=== PATIENT | male | born 1960 | race Caucasian/White ===

== ENCOUNTER 2024-04-01 09:55 | Inpatient (IN) | payer OTHER ==
[2024-04-01 10:33] VITALS: BMI 26.6
[2024-04-01] MEDS ORDERED: POLYETHYLENE GLYCOL (HEALTHYLAX) 3350 17 GM PACKET PO PRN (10:45)
[2024-04-01] MEDS ORDERED: MAG HYDROX/AL HYDROX/SIMETH 30 ML UNIT-DOSE CUP PO PRN (10:45)
[2024-04-01] MEDS ORDERED: IBUPROFEN 600 MG TABLET (FP) PO PRN (10:45)
[2024-04-01] MEDS ORDERED: MAGNESIUM HYDROX 2400MG/30ML ORAL SUSPENSION 30 ML CUP PO PRN (10:45)
[2024-04-01] MEDS ORDERED: BENZOCAINE/MENTHOL (CHLORASEPTIC ) LOZENGE MM PRN (10:45)
[2024-04-01] MEDS ORDERED: ACETAMINOPHEN 325 MG TABLET (FP) PO PRN (10:45)
[2024-04-01] MEDS ORDERED: NICOTINE POLACRILEX 2 MG GUM BUC PRN (10:45)
[2024-04-01] MEDS ORDERED: BISMUTH SUBSALICYLATE 524 MG/30 ML PO PRN (10:45)
[2024-04-01] MEDS ORDERED: IBUPROFEN 400 MG TABLET (FP) PO PRN (10:45)
[2024-04-01] MEDS ORDERED: NICOTINE POLACRILEX 2 MG LOZENGE BC PRN (10:45)
[2024-04-01] MEDS ORDERED: guaiFENesin 600 MG TABLET.ER (FP) PO PRN (10:45)
[2024-04-01] MEDS ORDERED: DICYCLOMINE HCL 10 MG CAPSULE PO PRN (10:45)
[2024-04-01] MEDS ORDERED: LOPERAMIDE HCL 2 MG CAPSULE PO PRN (10:45)
[2024-04-01] MEDS ORDERED: ONDANSETRON *ODT* 4 MG TABLET SL PRN (10:45)
[2024-04-01] MEDS ORDERED: BENZONATATE 200 MG CAPSULE PO PRN (10:45)
[2024-04-01] MEDS ORDERED: NICOTINE 7 MG/24 HOURS TOPICAL PATCH TD ONE (11:17)
[2024-04-01 17:07] VITALS: RESP 18
[2024-04-01] MEDS: METHOCARBAMOL 500 MG TABLET PO PRN (17:37)
[2024-04-01] MEDS: hydrOXYzine PAMOATE 25 MG CAPSULE (FP) PO PRN (17:37)
[2024-04-01] MEDS: NICOTINE 7 MG/24 HOURS TOPICAL PATCH TD SCH (17:39)
[2024-04-01] MEDS: ATORVASTATIN CA 80 MG TABLET (FP) PO SCH (22:22)
[2024-04-01] MEDS: THIAMINE 100 MG TABLET PO SCH (22:22)
[2024-04-01] MEDS: MELATONIN 5 MG TABLETS PO SCH (22:22)
[2024-04-02 09:34] VITALS: BP 139/86; PULSE 64; TEMP 98.3
[2024-04-02] MEDS: PRENATAL VITAMINS W/ FOLIC ACID TABLET (FP) PO SCH (10:49)
== END 2024-04-02 09:02 | disposition home or self-care (01) | DRG 775 ==
LOC: YASAS 09:55 → Y3N 11:47
PROVIDERS: ADMIT Allergy & Immunology; ATTEND Surgery
PROC: HZ2ZZZZ Detoxification Services for Substance Abuse Treatment (ICD-10-PCS; principal; 2024-04-01)
DX: F10.20 Alcohol dependence, uncomplicated (principal); F10.220 Alcohol dependence with intoxication, uncomplicated; F17.210 Nicotine dependence, cigarettes, uncomplicated
CPT/HCPCS: 80305; 82962; 93005; 93010

== ENCOUNTER 2025-04-11 08:23 | Inpatient (IN) | payer OTHER ==
[2025-04-11 08:42] VITALS: BMI 28.0
[2025-04-11] MEDS ORDERED: BISMUTH SUBSALICYLATE 524 MG/30 ML PO PRN (08:48)
[2025-04-11] MEDS ORDERED: POLYETHYLENE GLYCOL (HEALTHYLAX) 3350 17 GM PACKET PO PRN (08:48)
[2025-04-11] MEDS ORDERED: LOPERAMIDE HCL 2 MG CAPSULE PO PRN (08:48)
[2025-04-11] MEDS ORDERED: ACETAMINOPHEN 325 MG TABLET (FP) PO PRN (08:48)
[2025-04-11] MEDS ORDERED: guaiFENesin 600 MG TABLET.ER (FP) PO PRN (08:48)
[2025-04-11] MEDS ORDERED: DICYCLOMINE HCL 10 MG CAPSULE PO PRN (08:48)
[2025-04-11] MEDS ORDERED: NALOXONE (NARCAN) HCL 4 MG/0.1 ML SPRAY NS PRN (08:48)
[2025-04-11] MEDS ORDERED: BENZOCAINE/MENTHOL (CHLORASEPTIC ) LOZENGE MM PRN (08:48)
[2025-04-11] MEDS ORDERED: IBUPROFEN 400 MG TABLET (FP) PO PRN (08:48)
[2025-04-11] MEDS ORDERED: NICOTINE POLACRILEX 2 MG LOZENGE BC PRN (08:48)
[2025-04-11] MEDS ORDERED: MAGNESIUM HYDROX 2400MG/30ML ORAL SUSPENSION 30 ML CUP PO PRN (08:48)
[2025-04-11] MEDS ORDERED: BENZONATATE 200 MG CAPSULE PO PRN (08:48)
[2025-04-11] MEDS ORDERED: MAG HYDROX/AL HYDROX/SIMETH 30 ML UNIT-DOSE CUP PO PRN (08:48)
[2025-04-11] MEDS ORDERED: ONDANSETRON *ODT* 4 MG TABLET SL PRN (08:48)
[2025-04-11] MEDS ORDERED: hydrOXYzine PAMOATE 25 MG CAPSULE (FP) PO PRN (08:48)
[2025-04-11] MEDS ORDERED: SENNOSIDES 8.6MG TABLET (FP) PO PRN (10:09)
[2025-04-11] MEDS ORDERED: PRENATAL VITAMINS W/ FOLIC ACID TABLET (FP) PO ONE (10:42)
[2025-04-11] MEDS: PRENATAL VITAMINS W/ FOLIC ACID TABLET (FP) PO SCH (10:43)
[2025-04-11] MEDS: levETIRAcetam 500 MG TABLET (FP) PO SCH (10:44)
[2025-04-11] MEDS: NICOTINE 14 MG/24 HOURS TOPICAL PATCH TD SCH (10:56)
[2025-04-11] MEDS: GABAPENTIN 100 MG CAPSULE PO SCH (13:27)
[2025-04-11] MEDS: ATORVASTATIN CA 20 MG TABLET (FP) PO SCH (22:03)
[2025-04-11] MEDS: SUVOREXANT 10 MG TABLET PO PRN (22:08)
[2025-04-11] MEDS: THIAMINE 100 MG TABLET PO SCH (22:09)
[2025-04-11] MEDS: MELATONIN 5 MG TABLETS PO SCH (22:09)
[2025-04-11] MEDS: IBUPROFEN 600 MG TABLET (FP) PO PRN (23:27)
[2025-04-12] MEDS: PANTOPRAZOLE 40 MG TABLET PO SCH (07:12)
[2025-04-12] MEDS: NICOTINE POLACRILEX 2 MG GUM BUC PRN (08:43)
[2025-04-12] MEDS: FENOFIBRIC ACID 135 MG CAP PO SCH (09:51)
[2025-04-12 11:41] LABS: MCHC 31.9 g/dl (32.3-36.5); MEAN CELL VOLUME 102.4 fl (79.0-92.2); MEAN PLT VOLUME 10.0 fl (9.4-12.4); RDW 12.3 % (12.2-16.4)
[2025-04-12 12:15] LABS: CO2 25.0 mmol/L (21-32); GLUCOSE,RANDOM 127.0 mg/dL (74-106)
[2025-04-12 12:18] LABS: CREATININE 1.0 mg/dL (0.55-1.3); SGOT/AST 54.0 U/L (15-37); SGPT/ALT 42.0 U/L (13-61)
[2025-04-12 12:20] LABS: TOT PROT 7.4 g/dl (6.4-8.2)
[2025-04-12 12:21] LABS: ALK PHOS 49.0 U/L (45-117)
[2025-04-12] MEDS: NALTREXONE HCL 50 MG TABLET PO ONE (13:16)
[2025-04-12] MEDS: SODIUM POLYSTYRENE SULFONATE 15 GM/60 ML BOTTLE PO ONE ×2 (13:36→21:46)
[2025-04-12] MEDS ORDERED: SODIUM POLYSTYRENE SULFONATE 15 GM/60 ML BOTTLE PO ONE (20:00)
[2025-04-13] MEDS: METHOCARBAMOL 500 MG TABLET PO PRN (00:40)
[2025-04-13] MEDS: NALTREXONE MICROSPHERES (VIVITROL) 380 MG DISP.SYRIN IM ONE (05:21)
[2025-04-13 13:21] VITALS: BP 112/67; PULSE 59; RESP 18; TEMP 98.4
== END 2025-04-13 09:07 | disposition home or self-care (01) | DRG 775 ==
LOC: YASAS 08:23 → Y6N 09:26
PROVIDERS: ADMIT Neuromusculoskeletal Medicine & OMM; ATTEND Allergy & Immunology
PROC: HZ2ZZZZ Detoxification Services for Substance Abuse Treatment (ICD-10-PCS; principal; 2025-04-11)
DX: F10.230 Alcohol dependence with withdrawal, uncomplicated (principal); F17.210 Nicotine dependence, cigarettes, uncomplicated; F10.282 Alcohol dependence with alcohol-induced sleep disorder; E87.5 Hyperkalemia; G47.00 Insomnia, unspecified; E78.5 Hyperlipidemia, unspecified; E11.9 Type 2 diabetes mellitus without complications; Z79.84 Long term (current) use of oral hypoglycemic drugs; K21.9 Gastro-esophageal reflux disease without esophagitis
CPT/HCPCS: 36415; 80053; 80305; 80307; 82962; 85027; 86780; 93005; 93010; J2315